=== PATIENT | male | born 1955 | race Caucasian/White ===

== ENCOUNTER 2020-02-14 09:00 | Emergency (ER) | payer OTHER ==
[2020-02-14 09:09] VITALS: RESP 18
[2020-02-14] MEDS ORDERED: MORPHINE SULFATE 4 MG/ML SYRINGE IM STA (09:42)
--- NOTE | 2020-02-14 10:03 | XR ---
EXAMINATION TYPE: XR chest 2V DATE OF EXAM: 02/14/2020 COMPARISON: NONE HISTORY: Shortness of breath TECHNIQUE: Frontal and lateral views of the chest are obtained. FINDINGS: Scattered senescent parenchymal changes noted. Hyperinflation compatible with COPD. No evidence for infiltrate. No evidence for atelectasis. Heart size is stable. Mediastinal structures are stable and grossly unremarkable. No evidence for hilar prominence. Degenerative changes dorsal spine. IMPRESSION: 1. No evidence for acute pulmonary disease.
--- NOTE | 2020-02-14 10:05 | XR ---
EXAMINATION TYPE: XR shoulder limited RT DATE OF EXAM: 02/14/2020 CLINICAL HISTORY: pain TECHNIQUE: Two views of the right shoulder are obtained. COMPARISON: None FINDINGS: Anterior dislocation of the humeral head relative to the glenoid. No obvious fracture ident ified. IMPRESSION: 1. Anterior shoulder dislocation.
[2020-02-14] MEDS ORDERED: PROPOFOL 10 MG/ML 20 ML VIAL IV ONE ×2 (10:19→12:01)
[2020-02-14] MEDS ORDERED: HYDROmorphone 0.5 MG/0.5 ML SYRINGE IVP STA (11:14)
--- NOTE | 2020-02-14 11:43 | ED ---
Upper Extremity HPI <Rob Aviles - Last Filed: 02/14/20 12:05> - General Source: patient Mode of arrival: wheelchair Limitations: physical limitation <Emerald Anderson - Last Filed: 02/14/20 14:02> - General Chief Complaint: Extremity Injury, Upper Stated Complaint: Fall/Shoulder injury Time Seen by Provider: 02/14/20 09:27 - History of Present Illness Initial Comments: 64-year-old male presenting today for chief complaint of fall from truck bed. Patient states his truck but was slick and he slipped falling onto his shoulder. He states he fell directly onto the shoulder he states he did not hit his head he denies any neck pain back pain chest pain shortness of breath. The based aspiration abdominal or flank pain he denies injury to the hip or lower extremities. He states he only thing that hurts is his right shoulder he states he felt like the top of the shoulder he denies any posterior shoulder pain. Patietn denies numbness, or weakness distal to the shoulder. Patient denies additional complaints. (Emerald Anderson) - Related Data Home Medications Medication Instructions Recorded Confirmed No Known Home Medications 02/14/20 02/14/20 Allergies Allergy/AdvReac Type Severity Reaction Status Date / Time wool Allergy Rash/Hives Verified 02/14/20 10:47 Review of Systems ROS Other: All systems not noted in ROS Statement are negative. <Rob Aviles - Last Filed: 02/14/20 12:05> ROS Other: All systems not noted in ROS Statement are negative. <Emerald Anderson - Last Filed: 02/14/20 14:02> ROS Statement: Those systems with pertinent positive or pertinent negative responses have been documented in the HPI. Past Medical History Past Medical History: No Reported History History of Any Multi-Drug Resistant Organisms: None Reported Past Surgical History: Orthopedic Surgery Past Psychological History: No Psychological Hx Reported Smoking Status: Former smoker Past Alcohol Use History: None Reported Past Drug Use History: None Reported <Emerald Anderson - Last Filed: 02/14/20 14:02> General Exam Limitations: physical limitation <Emerald Anderson - Last Filed: 02/14/20 14:02> - General Exam Comments Initial Comments: General: The patient is awake and alert, in no distress Eye: +3 mm pupils are equal, round and reactive to light, extra-ocular movements are intact. No nystagmus. There is normal conjunctiva bilaterally. No signs of icterus. Ears, nose, mouth and throat: There are moist mucous membranes and no oral lesions. No raccoon or Shi sign Neck: The neck is supple, there is no tenderness or JVD. No midline tenderness with patient the cervical spine Cardiovascular: There is a regular rate and rhythm. No murmur, rub or gallop is appreciated. Respiratory: Lungs are clear to auscultation, respirations are non-labored, breath sounds are equal. No wheezes, stridor, rales, or rhonchi. Gastrointestinal: Soft, non-distended, non-tender abdomen without masses or organomegaly noted. There is no rebound or guarding present. Musculoskeletal: Gross inspection of the shoulder there is obvious anterior deformity. Patient unable to range at the right shoulder. No abrasions lacerations. Patient is able to move fully at the right elbow wrist he can make the okay fingers crossed and thumbs up sign. Patient can oppose the small digit and thumb. No badge anesthesia. Patient has sensation proximal distal to injury site Strength 5/5 of elbow wrist. Radial pulses equal bilaterally 2+. Neurological: A&O x 3. CN II-XII intact grossly, There are no obvious motor or sensory deficits. Coordination appears grossly intact. Speech is normal. Skin: Skin is warm and dry and no rashes or lesions are noted. Psychiatric: Cooperative, appropriate mood & affect, normal judgment. (Emerald Anderson) Course Vital Signs 02/14/20 02/14/20 02/14/20 09:06 12:00 12:01 Temperature 97.9 F Pulse Rate 79 75 72 Respiratory 18 18 18 Rate Blood Pressure 133/62 142/76 125/85 O2 Sat by Pulse 97 100 98 Oximetry 02/14/20 02/14/20 02/14/20 12:05 12:20 12:35 Temperature Pulse Rate 78 72 73 Respiratory 18 18 18 Rate Blood Pressure 118/78 118/78 144/87 O2 Sat by Pulse 98 95 94 L Oximetry 02/14/20 02/14/20 12:50 13:30 Temperature 98.2 F 98.1 F Pulse Rate 75 82 Respiratory 18 18 Rate Blood Pressure 140/86 140/89 O2 Sat by Pulse 94 L 96 Oximetry Procedures - Procedural Sedation Procedural Sedation Start Time: 12:00 Procedural Sedation Stop Time: 12:05 Indications: fracture/dislocation reduction ASA Class: II Mallampati Airway Score: 2 Preparation: rn placement applied, pulse oximeter, capnometry used, supplemental O2 applied, suction/airway equipment at bedside IV Propofol Dose (mgs): 100 Complications: none Patient Tolerated Procedure: well <Rob Aviles - Last Filed: 02/14/20 12:05> Medical Decision Making <Emerald Anderson - Last Filed: 02/14/20 14:02> - Medical Decision Making anterior dislocation. Neurovascularly intact both prior to and after reduction. Patient was given 100 mg of propofol with respiratory bedside. No adverse event, excess or reduction with my attending Dr. archie baum who pushed the propofol. Patient states pain is much better. Monitored for 40 minutes after sedation. pt back to baseline discharged with PCPand orthopedic f/u he denied any anticoagulation use (Emerald Anderson) Disposition <Rob Aviles - Last Filed: 02/14/20 12:05> Is patient prescribed a controlled substance at d/c from ED?: No Time of Disposition: 12:30 <Emerald Anderson - Last Filed: 02/14/20 14:02> Clinical Impression: Anterior dislocation of right shoulder, Fall Disposition: HOME SELF-CARE Condition: Good Instructions (If sedation given, give patient instructions): Shoulder Dislocation (ED), Moderate Sedation (ED) Additional Instructions: Please use medication as discussed. Please follow-up with family doctor in the next 2 days. Please return to emergency room if the symptoms increase or worsen or for any other concerns. Referrals: None,Stated [Primary Care Provider] - 1-2 days Chauncey Satples DO [Doctor of Osteopathic Medicine] - 1-2 days
--- NOTE | 2020-02-14 12:24 | XR ---
EXAMINATION TYPE: XR shoulder limited RT DATE OF EXAM: 02/14/2020 COMPARISON: Earlier today HISTORY: 64-year-old male postreduction exam TECHNIQUE: Single AP view FINDINGS: Mild degenerative change at the AC joint. Interval satisfactory reduction at the glenohumer al joint. Bony irregularity superolaterally at the humeral head suggests a shallow Hill-Sachs deformi ty. IMPRESSION: Interval satisfactory reduction at the glenohumeral joint. Suspect a shallow Hill-Sachs impaction def ormitprince.
[2020-02-14 13:33] VITALS: BP 140/89; PULSE 82; TEMP 98.1
== END 2020-02-14 13:30 | disposition home or self-care (01) ==
LOC: EC 09:00
DX: S43.004A Unspecified dislocation of right shoulder joint, initial encounter (principal); Z91.048 Other nonmedicinal substance allergy status; Z87.891 Personal history of nicotine dependence; W17.89XA Other fall from one level to another, initial encounter
CPT/HCPCS: 73020; 71046; 99283; 23650; 96374; 96375; 96372; J2270; J2704; J1170